=== PATIENT | female | born 1995 | race African-American/Black ===

== ENCOUNTER 2016-02-27 06:09 | Emergency (ER) ==
[2016-02-27 06:13] VITALS: BMI 28.3
[2016-02-27 06:26] VITALS: BP 123/74; TEMP 98.3
[2016-02-27] MEDS ORDERED: FLAGYL PO STA (06:43)
--- NOTE | 2016-02-27 06:45 | ED.PDOC ---
General ED Provider: Dr. SANDOVAL TREJO Chief Complaint: Vaginal Discharge/Swelling Stated Complaint: Discharge, foul smelling. Itching. has similar episodes frequently. sees OBGYN Time Seen by Physician: 06:43 Mode of Arrival: Walk-In Information Source: Patient Nursing and Triage Documentation Reviewed and Agree: Yes Complaint Exam - Complaint/Exam Patient Complains of: Reports: Vaginal discharge Symptoms Are: Still present Timing: Intermittent Initial Severity: Mild Current Severity: Mild Location of Pain: Reports: None Aggravating: Reports: None Alleviating: Reports: None Associated Signs and Symptoms: Reports: Vaginal discharge Related History: Reports: Similar episode : 0 Para: 0 Hx Total # of Abortions (Spontaneous & Elective): 0 Ectopic Risk Factors: Reports: None Ovarian Torsion Risk Factors: Reports: None Surgical Obstruction Risk Factors: Reports: None Related Surgical History: Reports: None Abdominal Findings: Present: None Differential Diagnoses: Other (bacterial vaginosis) Review of Systems - Review Of Systems Constitutional: Reports: No symptoms Eyes: Reports: No symptoms Ears, Nose, Mouth, Throat: Reports: No symptoms Respiratory: Reports: No symptoms Cardiac: Reports: No symptoms GI: Reports: No symptoms : Reports: Discharge, Flank pain Musculoskeletal: Reports: No symptoms Skin: Reports: No symptoms Neurological: Reports: No symptoms Endocrine: Reports: No symptoms Hematologic/Lymphatic: Reports: No symptoms All Other Systems: Reviewed and Negative Past Medical History - Past Medical History Previously Healthy: Yes Endocrine: Reports: None Cardiovascular: Reports: None Respiratory: Reports: None Hematological: Reports: None Gastrointestinal: Reports: None Genitourinary: Reports: Other (Yeast , Herpes ) Neuro/Psych: Reports: Anxiety, Depression Musculoskeletal: Reports: None Cancer: Reports: None Last Menstrual Period: 02/06/16 Other Pertinent Past Medical History: herpes - Surgical History General Surgical History: Reports: Unknown - Family History Family History: Reports: Unknown - Social History Smoking Status: Never smoker Hx Substance Use: No Alcohol Screening: None - Immunizations Tetanus Shot up to Date: Yes Physical Exam - Physical Exam Appearance: Well-appearing, No pain distress, Well-nourished Eyes: MARY ELLEN, EOMI, Conjunctiva clear ENT: Ears normal, Nose normal, Oropharynx normal Respiratory: Airway patent, Breath sounds clear, Breath sounds equal, Respirations nonlabored Cardiovascular: RRR, Pulses normal, No rub, No murmur GI/: Soft, Nontender, No masses, Bowel sounds normal, No Organomegaly Musculoskeletal: Normal strength, ROM intact, No edema, No calf tenderness Skin: Warm, Dry, Normal color Neurological: Sensation intact, Motor intact, Reflexes intact, Cranial nerves intact, Alert, Oriented Psychiatric: Affect appropriate, Mood appropriate Critical Care Note - Critical Care Note Total Time (mins): 0 Course - Course Orders, Labs, Meds: Orders Category Date Time Status Metronidazole [Flagyl] MEDS 02/27/16 06:43 Stat 500 mg PO ONCE STA Vital Signs: Temp Pulse Resp BP Pulse Ox 02/27/16 06:18 98.3 F 90 22 123/74 97 Departure - Departure Time of Disposition: 07:00 Disposition: HOME SELF-CARE Discharge Problem: Bacterial vaginosis Instructions: Bacterial Vaginosis (ED) Condition: Stable Pt referred to PMD for follow-up: Yes (OBGYN) Additional Instructions: HYGIENE DISCUSSED Needs f/u with OBGYN, as you are having frequent episodes. Prescriptions: Metronidazole [Flagyl] 500 mg PO Q12HR #21 tablet Allergies/Adverse Reactions: Allergies No Known Allergies Allergy (Verified 02/27/16 06:26) Home Medications: Ambulatory Orders Metronidazole [Flagyl] 500 mg PO Q12HR #21 tablet 02/27/16 Disposition Discussed With: Patient
[2016-02-27 07:10] LABS: BILIRUBIN,URINE Negative (NEGATIVE); KETONES,URINE Negative (NEGATIVE); LEUKOCYTE ESTERASE ,URINE Negative (NEGATIVE); NITRITE,URINE Negative (NEGATIVE); PH,URINE 5.5 (5-9); PROTEIN,URINE Negative (NEGATIVE); URINE, BLOOD Trace-intact (NEGATIVE)
[2016-02-27 07:11] LABS: URINE PREGNANCY INTERNAL QC INTERNAL QC VALID
[2016-02-27 07:12] LABS: ADD URINE MICROSCOPIC YES
[2016-02-27 07:26] LABS: BACTERIA,URINE TRACE (NOT PRESENT)
== END 2016-02-27 07:38 | disposition home or self-care (01) ==
LOC: ED 06:09
DX: N76.0 Acute vaginitis (principal)
CPT/HCPCS: 81001; 81025; 99283

== ENCOUNTER 2016-04-13 19:21 | Emergency (ER) ==
[2016-04-13 19:31] VITALS: BP 134/72; TEMP 99.3; BMI 29.1
[2016-04-13 19:41] LABS: BILIRUBIN,URINE Negative (NEGATIVE); KETONES,URINE Negative (NEGATIVE); LEUKOCYTE ESTERASE ,URINE Negative (NEGATIVE); NITRITE,URINE Negative (NEGATIVE); PROTEIN,URINE Negative (NEGATIVE); URINE, BLOOD Trace-intact (NEGATIVE)
[2016-04-13 19:44] LABS: ADD URINE MICROSCOPIC YES
[2016-04-13 19:45] LABS: BACTERIA,URINE 1+ (NOT PRESENT)
[2016-04-13] MEDS ORDERED: DIFLUCAN PO STA (19:45)
[2016-04-13 19:47] LABS: URINE PREGNANCY INTERNAL QC INTERNAL QC VALID
--- NOTE | 2016-04-13 19:47 | ED.PDOC ---
General ED Provider: Dr. SANDOVAL TREJO Chief Complaint: Abdominal Pain Stated Complaint: Hurting in the lower abdomen, white discharge, has h/o fungal infection. Time Seen by Physician: 19:45 Mode of Arrival: Walk-In Information Source: Patient Primary Care Provider: SANDOVAL TREJO[facility] Nursing and Triage Documentation Reviewed and Agree: Yes GI Complaint Exam - Abdominal Pain Complaint/Exam Onset: Gradual Symptoms Are: Still present Timing: Constant Initial Severity: Mild Current Severity: Mild Location of Pain: Suprapubic Character: Reports: Dull, Aching Aggravating: Reports: Movement Alleviating: Reports: None Associated Signs and Symptoms: Reports: Dysuria, Urinary frequency. Denies: Diaphoresis, Fever, Cough, Chest pain, Dizziness, Back pain, Constipation, Blood in stool, Decreased urine output, Decreased appetite, Vaginal bleeding, Vaginal discharge, Nausea, Vomiting, Diarrhea, Sore throat, Decreased activity Related History: Reports: Similar episode Ectopic Risk Factors: Reports: None Ovarian Torsion Risk Factors: Reports: None Surgical Obstruction Risk Factors: Reports: None Related Surgical History: Reports: None Abdominal Findings: Present: None Differential Diagnoses: PID, Other (vaginal cnadidiasis) Review of Systems - Review Of Systems Constitutional: Reports: No symptoms Eyes: Reports: No symptoms Ears, Nose, Mouth, Throat: Reports: No symptoms Respiratory: Reports: No symptoms Cardiac: Reports: No symptoms GI: Reports: Abdominal pain : Reports: No symptoms Musculoskeletal: Reports: No symptoms Skin: Reports: No symptoms Neurological: Reports: No symptoms Endocrine: Reports: No symptoms Hematologic/Lymphatic: Reports: No symptoms All Other Systems: Reviewed and Negative Past Medical History - Past Medical History Previously Healthy: Yes Endocrine: Reports: None Cardiovascular: Reports: None Respiratory: Reports: None Hematological: Reports: None Gastrointestinal: Reports: None Genitourinary: Reports: Other (Yeast , Herpes ) Neuro/Psych: Reports: Anxiety, Depression Musculoskeletal: Reports: None Cancer: Reports: None Last Menstrual Period: week february Other Pertinent Past Medical History: herpes - Surgical History General Surgical History: Reports: Unknown - Family History Family History: Reports: Unknown - Social History Smoking Status: Never smoker Hx Substance Use: No Alcohol Screening: None Physical Exam - Physical Exam Appearance: Well-appearing, No pain distress, Well-nourished Eyes: MARY ELLEN, EOMI, Conjunctiva clear ENT: Ears normal, Nose normal, Oropharynx normal Respiratory: Airway patent, Breath sounds clear, Breath sounds equal, Respirations nonlabored Cardiovascular: RRR, Pulses normal, No rub, No murmur GI/: Soft, Nontender, No masses, Bowel sounds normal, No Organomegaly Musculoskeletal: Normal strength, ROM intact, No edema, No calf tenderness Skin: Warm, Dry, Normal color Neurological: Sensation intact, Motor intact, Reflexes intact, Cranial nerves intact, Alert, Oriented Psychiatric: Affect appropriate, Mood appropriate Critical Care Note - Critical Care Note Total Time (mins): 0 Course - Course Orders, Labs, Meds: Lab Review 04/13/16 19:30 Urine Color Yellow Urine Clarity Cloudy Urine pH 7.0 Ur Specific Buhl 1.020 Urine Protein Negative Urine Glucose (UA) Negative Urine Ketones Negative Urine Blood Trace-intact Urine Nitrite Negative Urine Bilirubin Negative Urine Urobilinogen 0.2 Ur Leukocyte Esterase Negative Urine Microscopic RBC 0-2 Ur Squamous Epith Cells 0-2 Amorphous Sediment 1+ Urine Bacteria 1+ Orders Category Date Time Status UA [URINALYSIS C & S IF INDICATED] Stat LAB 04/13/16 19:30 Completed URINE CULTURE Stat LAB 04/13/16 19:45 Received URINE Stat LAB 04/13/16 19:41 Ordered Fluconazole [Diflucan] MEDS 04/13/16 19:45 Stat 150 mg PO ONCE STA Medications Generic Name Dose Route Start Last Admin Trade Name Freq PRN Reason Stop Dose Admin Fluconazole 150 mg 04/13/16 19:45 Diflucan PO 04/13/16 19:46 ONCE STA Vital Signs: Temp Pulse Resp BP Pulse Ox 04/13/16 19:22 99.3 F 93 H 18 134/72 99 Departure - Departure Time of Disposition: 19:49 Disposition: HOME SELF-CARE Discharge Problem: Candidiasis of vagina Instructions: Vulvovaginal Candidiasis (ED) Condition: Stable Pt referred to PMD for follow-up: Yes Additional Instructions: Needs f/u with OBGYN. [employer] Prescriptions: Fluconazole [Diflucan] 100 mg PO BID #14 tablet Allergies/Adverse Reactions: Allergies No Known Allergies Allergy (Verified 04/13/16 19:24) Home Medications: Ambulatory Orders Fluconazole [Diflucan] 100 mg PO BID #14 tablet 04/13/16 Disposition Discussed With: Patient
== END 2016-04-13 20:03 | disposition home or self-care (01) ==
LOC: ED 19:21
DX: B37.3 Candidiasis of vulva and vagina (principal)
CPT/HCPCS: 81001; 81025; 87086; 99283